=== PATIENT | female | born 1965 | race Caucasian/White ===

== ENCOUNTER → 2019-12-26 00:01 | Outpatient (BNVA) | payer MEDICAID, SELFPAY | PROVIDERS: Family Provider Physician Assistant Medical; PCP Nurse Practitioner Family; Visit Provider Nurse Practitioner Family | DX: E11.9 Type 2 diabetes mellitus without complications (principal); I10 Essential (primary) hypertension; E78.2 Mixed hyperlipidemia; E55.9 Vitamin D deficiency, unspecified | CPT/HCPCS: 80053; 80061; 82306; 83036; 84443 ==

== ENCOUNTER → 2019-12-26 12:10 | Outpatient (BNVA) | payer MEDICAID, SELFPAY | PROVIDERS: Family Provider Physician Assistant Medical; PCP Nurse Practitioner Family; Visit Provider Nurse Practitioner Family | DX: E11.9 Type 2 diabetes mellitus without complications (principal); I10 Essential (primary) hypertension; E78.2 Mixed hyperlipidemia; E55.9 Vitamin D deficiency, unspecified; Z79.4 Long term (current) use of insulin | CPT/HCPCS: 85025 ==

== ENCOUNTER → 2020-02-18 16:08 | Outpatient (BNVA) | payer MEDICAID, SELFPAY | PROVIDERS: Family Provider Physician Assistant Medical; PCP Nurse Practitioner Family; Visit Provider Nurse Practitioner Family | DX: R19.7 Diarrhea, unspecified (principal) | CPT/HCPCS: 82270 ==

== ENCOUNTER → 2020-02-20 11:31 | Outpatient (BNVA) | payer MEDICAID, SELFPAY | PROVIDERS: Family Provider Physician Assistant Medical; PCP Nurse Practitioner Family; Visit Provider Nurse Practitioner Family | DX: R11.0 Nausea (principal); R19.7 Diarrhea, unspecified | CPT/HCPCS: 87506 ==

== ENCOUNTER → 2020-04-15 09:19 | Outpatient (BNVA) | payer MEDICAID, SELFPAY | PROVIDERS: Family Provider Physician Assistant Medical; PCP Nurse Practitioner Family; Visit Provider Nurse Practitioner Family | DX: E11.9 Type 2 diabetes mellitus without complications (principal); Z79.4 Long term (current) use of insulin; R10.9 Unspecified abdominal pain; R41.3 Other amnesia; R14.0 Abdominal distension (gaseous) | CPT/HCPCS: 74018; 80053; 81003; 85025 ==

== ENCOUNTER 2020-05-07 06:00 | Outpatient (RCR) | payer MEDICAID, SELFPAY | END 2020-06-03 23:59 | disposition home or self-care (01) | LOC: WPT 06:00 | PROVIDERS: PCP Nurse Practitioner Family; Referring Provider Nurse Practitioner Family; Visit Provider Nurse Practitioner Family | DX: G89.29 Other chronic pain (principal); M54.9 Dorsalgia, unspecified; M25.551 Pain in right hip | CPT/HCPCS: 97110; 97161; 97530 ==

== ENCOUNTER → 2020-05-27 11:39 | Outpatient (BNVA) | payer MEDICAID, SELFPAY | PROVIDERS: PCP Nurse Practitioner Family; Visit Provider Nurse Practitioner Family | DX: E11.9 Type 2 diabetes mellitus without complications (principal); Z79.4 Long term (current) use of insulin | CPT/HCPCS: 80053; 81003; 83036; 85025 ==

== ENCOUNTER 2020-06-04 06:00 | Outpatient (RCR) | payer MEDICAID, SELFPAY | END 2020-07-04 23:59 | disposition home or self-care (01) | LOC: WPT 06:00 | PROVIDERS: PCP Nurse Practitioner Family; Referring Provider Nurse Practitioner Family; Visit Provider Nurse Practitioner Family | DX: M54.9 Dorsalgia, unspecified (principal); M25.551 Pain in right hip; G89.29 Other chronic pain | CPT/HCPCS: 97110; 97530 ==

== ENCOUNTER → 2020-06-10 10:45 | Outpatient (BNVA) | payer MEDICAID, SELFPAY | PROVIDERS: PCP Nurse Practitioner Family; Referring Provider Nurse Practitioner Family; Visit Provider Internal Medicine | DX: E11.40 Type 2 diabetes mellitus with diabetic neuropathy, unspecified (principal); Z79.4 Long term (current) use of insulin; E66.01 Morbid (severe) obesity due to excess calories; Z68.42 Body mass index [BMI] 45.0-49.9, adult; I10 Essential (primary) hypertension | CPT/HCPCS: 99204 ==

== ENCOUNTER → 2020-06-15 13:14 | Outpatient (BNVA) | payer MEDICAID, SELFPAY | PROVIDERS: PCP Nurse Practitioner Family; Visit Provider Nurse Practitioner Family | DX: R63.5 Abnormal weight gain (principal) | CPT/HCPCS: 82530; 82570 ==

== ENCOUNTER 2020-07-07 10:00 | Outpatient (RCR) | payer MEDICAID, SELFPAY | END 2020-07-07 13:00 | disposition home or self-care (01) | LOC: WPT 10:00 | PROVIDERS: PCP Nurse Practitioner Family; Visit Provider Nurse Practitioner Family | DX: M25.551 Pain in right hip (principal); M54.9 Dorsalgia, unspecified; G89.29 Other chronic pain | CPT/HCPCS: 97110 ==

== ENCOUNTER → 2020-08-17 11:38 | Outpatient (BNVA) | payer MEDICAID, SELFPAY | PROVIDERS: PCP Nurse Practitioner Family; Visit Provider Nurse Practitioner Family | DX: Z20.828 Contact with and (suspected) exposure to other viral communicable diseases (principal) | CPT/HCPCS: 87635 ==

== ENCOUNTER 2020-08-23 13:06 | Emergency (ER) | payer MEDICAID, SELFPAY ==
[2020-08-23 13:31] VITALS: BP 158/84; PULSE 79; RESP 22; TEMP 36.6; O2SAT 95; BMI 48.6
--- NOTE | 2020-08-23 15:08 | XRR_ITS ---
PROCEDURE INFORMATION: Exam: XR Chest, 1 View Exam date and time: 08/23/2020 3:09 PM Age: 55 years old Clinical indication: Cough and shortness of breath; Additional info: Short of breath TECHNIQUE: Imaging protocol: XR of the chest Views: 1 view. COMPARISON: CT Chest/Abdomen/Pelvis w IV* 02/19/2018 3:20 AM FINDINGS: Lungs: Unremarkable. No consolidation. Pleural space: Unremarkable. No pleural effusion. No pneumothorax. Heart/Mediastinum: Unremarkable. No cardiomegaly. Bones/joints: Unremarkable. XR/XR chest 1V portable [id number] IMPRESSION: No acute findings.
--- NOTE | 2020-08-23 15:08 | ECG_ITS ---
[facility] Test Date: 2020-08-23 Pat Name: Kendra Dockery Department: Room: Gender: Female Demographic Analyst: : 1965 Requested By: Bolivar Morrissey Order Number: [id number] Keller MD: Chantale Poole M.D. Measurements Intervals [place] Rate: 70 P: -3 CT: 186 QRS: 44 QRSD: 95 T: 46 QT: 390 QTc: 422 Interpretive Statements SINUS RHYTHM Compared to ECG 02/19/2018 01:07:26 No significant changes Electronically Signed On 08-24-2020 20:32:53 CAR DETAILER by Chantale Poole M.D. [id number]
--- NOTE | 2020-08-23 15:09 | ED_ITS ---
HPI - COVID General: Chief Complaint: COVID symptoms Stated Complaint: COUGH; COVID POS Time Seen by Provider: 08/23/20 15:07 Source: patient Mode of arrival: ambulatory Limitations: no limitations Triage information: Has fever, cough or shortness of breath . Exposure to COVID + person last 14 days History of Present Illness: HPI Narrative: Patient has been ill for approximately 8 days. Patient tested positive for COVID-19 on day 6 days ago. Patient comes in due to concerns of increased shortness of breath. Patient appears mildly unwell. Patient appears no acute distress. COVID 19 common symptoms: positive dyspnea COVID Results: SARS-CoV-2 RNA (RT-PCR) Detected (NOT DETECTED) A 08/17/20 11:38 08/17/20 Review of Systems General: Reports: 10 or more systems reviewed and unremarkable except in HPI and below Resp: Reports: dyspnea PFS ED PFSH: Medical History (Updated 08/17/20 @ 10:39 by SANJU Trinidad) Abdominal pain Acute bacterial sinusitis Arthritis Chronic back pain greater than 3 months duration Chronic right hip pain Environmental and seasonal allergies Hypertension Hypokalemia Increased endometrial stripe thickness Lower respiratory infection Mixed hyperlipidemia Neuropathy Short-term memory loss Type 2 diabetes mellitus Surgical History Status post delivery 2 c-sections Children are 29 yrs and 30yrs Status post ear surgery Family History Mother CAD (coronary artery disease) Father CAD (coronary artery disease) Social History Smoking and tobacco status: never smoked Alcohol intake: never Physical Exam Const: COMMON NORMALS: no acute distress and patient oriented x3 GENERAL APPEARANCE: cooperative HENMT: COMMON NORMALS: normocephalic and Normal external nose present HEAD & SCALP: normal to inspection and normocephalic NOSE: Normal external nose present MOUTH: Normal oral and palatal mucosa present Eye: GENERAL EYE: appearance normal, both eyes and all related structures Neck/C-Spine: COMMON NORMALS: full ROM Lymph: LYMPHATIC: no lymphadenopathy noted Chest: COMMONS NORMALS: normal inspection of the chest Resp: COMMON NORMALS: normal respiratory effort EFFORT & INSPECTION: Yes able to speak in complete sentences AUSCULTATION: diminished lung sounds Cardio: COMMON NORMALS: regular rate and regular rhythm RATE: regular rate RHYTHM: regular rhythm GI: COMMON NORMALS: non-tender : COMMON NORMALS: Yes no CVA tenderness BLADDER/KIDNEY EXAM: Yes no CVA tenderness Back/Pelvis: COMMON NORMALS: no CVA tenderness and thoracic and lumbar spine normal to inspection Extremity: COMMON NORMALS: normal to inspection Neuro: COMMON NORMALS: patient oriented x3 and moves all extremities Psych: COMMON NORMALS: mental status grossly normal and cooperative Skin: COMMON NORMALS: no rashes or lesions noted GENERAL SKIN EXAM: no michelle hes or lesions noted Course Vital Signs: Vital signs: Vital Signs Temperature 97.8 F 08/23/20 13:31 Pulse Rate 79 08/23/20 13:31 Respiratory Rate 22 H 08/23/20 13:31 Blood Pressure 158/84 08/23/20 13:31 Pulse Oximetry 95 08/23/20 13:31 MDM - COVID MDM Narrative: Medical decision making narrative: Patient presents with feeling of malaise, cough and congestion. Patient had been being treated for COVID-19 at her primary care office. Patient came into the ER for persistent cough and congestion after completing her antibiotic. On exam patient appears mildly unwell. Lungs were decreased in the bases. Vital signs were stable. Oxygenation was 97% on room air. Differential diagnosis include pneumonia, sequela to COVID-19, acute bronchitis, CHF. Chest x-ray noted no significant infiltrates or pneumonia. I reviewed the use of BAM with patient who agreed to plan for infusion. Patient was also treated with dexamethasone for congestion in her chest and continued difficulty with breathing. Patient reported understanding of care plan which includes continuation of nebulizer and inhalers as prescribed. EKG Data: EKG 1: Attestation: I personally reviewed and interpreted this EKG as follows: (1614, normal sinus rhythm on the EKG at 78 bpm. Rate is regular. No ST elevation or ectopy is noted. No prior exam is available at this time.) COVID Results: SARS-CoV-2 RNA (RT-PCR) Detected (NOT DETECTED) A 08/17/20 11:38 08/17/20 Discharge Plan Discharge Prescriptions: No Action doxycycline monohydrate 100 mg capsule 100 mg PO BID 10 Days Qty: 20 RF: 0 insulin aspart U-100 [Novolog Flexpen U-100 Insulin] 100 unit/mL (3 mL) insulin pen 12 unit SUBCUT BID RF: 0 hydrochlorothiazide 25 mg tablet 25 mg PO DAILY RF: 0 levofloxacin 500 mg tablet 500 mg PO DAILY 5 Days Qty: 5 RF: 0 guaifenesin [Mucinex] 600 mg tablet extended release 12hr 600 mg PO BID PRN (Reason: cough) 30 Days Qty: 60 RF: 0 acetaminophen [Pain Reliever (acetaminophen)] 325 mg tablet See Rx Instructions .ROUTE .COMPLEX Qty: 60 RF: 0 atorvastatin 80 mg tablet 80 mg PO DAILY 90 Days Qty: 90 RF: 1 baclofen 10 mg tablet 10 mg PO .AT BEDTIME PRN (Reason: pain) Qty: 30 RF: 2 cholecalciferol (vitamin D3) 1,250 mcg (50,000 unit) capsule 50,000 unit PO .weekly 90 Days Qty: 12 RF: 1 Jardiance 25 mg tablet 25 mg PO DAILY 90 Days Qty: 90 RF: 1 furosemide [Lasix] 20 mg tablet 20 mg PO BID 90 Days Qty: 180 RF: 1 gabapentin 300 mg capsule 600 mg PO BID Qty: 120 RF: 2 ibuprofen 800 mg tablet See Rx Instructions .ROUTE .COMPLEX Qty: 60 RF: 0 losartan 25 mg tablet 25 mg PO DAILY 90 Days Qty: 90 RF: 1 montelukast [Singulair] 10 mg tablet 10 mg PO DAILY 90 Days Qty: 90 RF: 1 Daily Multiple For Women 18 mg iron-400 mcg-500 mg Ca tablet 1 tab PO DAILY 90 Days Qty: 90 RF: 1 Januvia 100 mg tablet 100 mg PO DAILY 90 Days Qty: 90 RF: 1 fluticasone propionate 50 mcg/actuation spray,suspension 2 spray INTRANASAL DAILY Qty: 15.8 RF: 0 insulin detemir U-100 [Levemir FlexTouch U-100 Insuln] 100 unit/mL (3 mL) insulin pen See Rx Instructions .ROUTE .COMPLEX Qty: 15 RF: 2 albuterol sulfate [ProAir HFA] 90 mcg/actuation HFA aerosol inhaler See Rx Instructions .ROUTE .COMPLEX Qty: 8.5 RF: 2 potassium chloride 10 mEq capsule, extended release 10 meq PO DAILY Qty: 30 RF: 2 pen needle, diabetic [Pentips] 32 gauge x 5/32 needle See Rx Instructions .ROUTE .COMPLEX Qty: 100 RF: 5 Coding Level of Care Code ED Office Nurse Practitioner for Chg Fwd Exam Comprehensive
[2020-08-23] MEDS: dexamethasone 4 mg/mL INJ 6 MG IVP (16:45)
[2020-08-23 17:06] VITALS: O2SAT 96
[2020-08-23 17:21] VITALS: BP 121/74; PULSE 72; RESP 18; O2SAT 96
[2020-08-23 17:41] VITALS: TEMP 36.8
[2020-08-23 17:55] LABS: Basophils % 0.3 %; Eosinophils # 0.3 10^3/uL (0.0-0.8); Eosinophils % 3.1 %; Hematocrit 38.4 % (37.0-47.0); Hemoglobin 11.9 g/dL (11.5-15.3); Lymphocytes # 1.7 10^3/uL (0.8-4.8); Lymphocytes % 18.6 %; Mean Corpuscular Hemoglobin 27.5 pg (28.0-34.0); Mean Corpuscular Volume 88.9 fL (81-99); Mean Platelet Volume 11.5 fL (7.4-10.4); Monocytes # 0.6 10^3/uL (0.2-0.9); Monocytes % 6.6 %; Neutrophils # 6.24 10^3/uL (1.8-7.7); Neutrophils % 70.2 %; Nucleated Red Blood Cells % 0 %; Platelet Count 274 10^3/cmm (130-400); Red Blood Count 4.32 10^6/uL (4.1-5.3); White Blood Count 8.9 10^3/uL (4.0-10.0)
[2020-08-23 18:10] LABS: Alanine Aminotransferase 18 U/L (0-33); Albumin Level 3.6 g/dL (3.5-5.2); Alkaline Phosphatase 99 IU/L (35-105); Anion Gap 17.7 (5-19); Aspartate Amino Transferase 17 U/L (0-32); Blood Urea Nitrogen 18 mg/dL (6-20); Calcium 9.1 mg/dL (8.5-10.5); Carbon Dioxide 26 mmol/L (22-29); Chloride 98 mmol/L (98-107); Globulin 3.8 g/dL (1.3-4.6); Glucose 109 mg/dL (65-115); Osmolality Calculated 288 mOsm/kg (285-295); Potassium 3.7 mmol/L (3.5-5.1); Sodium 138 mmol/L (136-145); Total Bilirubin 0.4 mg/dL (0.15-1.2); Total Protein 7.4 g/dL (6.6-8.7)
[2020-08-23 18:56] VITALS: PULSE 73; RESP 18; O2SAT 96
--- NOTE | 2020-08-25 11:19 | DCPLANNER ---
Addendum entered by Grace May 09/01/20 15:20: harbor department manager called patient on day 10 after receiving the BAM infusion. Patient stated that she is feeling much better, has not had a follow up appointment yet, but will call her primary care to schedule one. Patient has not been admitted anywhere. Original Note: late entry - case worker had message that patient received the BAM infusion. harbor department manager called to check on patient after receiving the infusion. harbor department manager called [phone] phone just rang, and then disconnected, called [phone] and it was a busy signal, called [phone] voicemail box not set up and case worker called [phone] and voicemail box not set up with this number either. harbor department manager unable to speak with patient or leave a voicemail with any number on patients chart.
== END 2020-08-23 19:01 | disposition home or self-care (01) ==
PROVIDERS: Emergency Provider Nurse Practitioner Family; PCP Nurse Practitioner Family
DX: U07.1 COVID-19 (principal); Z79.4 Long term (current) use of insulin; I10 Essential (primary) hypertension; E78.2 Mixed hyperlipidemia; E11.40 Type 2 diabetes mellitus with diabetic neuropathy, unspecified
CPT/HCPCS: 12345; 71045; 80053; 85025; 93005; 96365; 96375; 99283; J1100; J7050

== ENCOUNTER → 2020-09-16 09:11 | Outpatient (BNVA) | payer MEDICAID, SELFPAY | PROVIDERS: PCP Nurse Practitioner Family; Visit Provider Internal Medicine | DX: E11.40 Type 2 diabetes mellitus with diabetic neuropathy, unspecified (principal); Z79.4 Long term (current) use of insulin; E66.01 Morbid (severe) obesity due to excess calories; Z68.42 Body mass index [BMI] 45.0-49.9, adult; I10 Essential (primary) hypertension; R63.5 Abnormal weight gain | CPT/HCPCS: 99214 ==

== ENCOUNTER 2020-11-10 07:14 | Day surgery (SDC) | payer MEDICAID, SELFPAY ==
[2020-11-06 12:52] VITALS: BMI 48.8
--- NOTE | 2020-11-06 13:13 | P.ANESASSM_ITS ---
Pre-Anesthetic Assessment Pre-Anesthetic Assessment: Height/Weight: Height 1.61 m Weight 127.006 kg Preop Diagnosis: Thickened endometrial stripe on ultrasound Proposed Procedure: Operation Date: 11/10/20 09:15 Proposed Procedures p Hysteroscopy [id number] R93.89 N88.2(Not Applicable) - MD judy Mclean Dilation And Curettage (D&C) with paracervical block(Not Applicable) - Johnny Freire MD Familial anesthetic complications: (quit breathing) Social: Social History: No alcohol and No tobacco Exam: Pre-Anes Outpt Exam: alert, oriented x 3, clear to auscultation bilaterally and regular rate & rhythm Airway: Cervical ROM: WNL MP: 4 Dentition: Chipped Additional comments: larege tongue, large neck, overbite - potential dificult airway Pulmonary: Pulmonary: COPD (bronchitis) and Sleep apnea Comments: covid in august CV/HEM: CV/HEM: HTN GI: GI: GERD (occassional) Metabolic: Metabolic: DM, Morbid obesity and Thyroid Musc/skel: Musc/skel: Lower Back Pain and OA/DJD Anesthetic Plan: ASA status: 3 Anesthesia: General Risk of > 500 ml blood loss (7ml/kg in children): No PFSH Anesthesia PFSH: Medical History (Updated 09/25/20 @ 17:08 by Johnny Freire MD) Abdominal pain Arthritis Chronic back pain greater than 3 months duration Chronic right hip pain Diabetic neuropathy Environmental and seasonal allergies Hypertension Hypokalemia Mixed hyperlipidemia Short-term memory loss Type 2 diabetes mellitus Surgical History (Updated 09/25/20 @ 17:08 by Johnny Freire MD) H/O section (~1989) With tubal ligation. Performed in [place], [place] History of carpal tunnel surgery of left wrist S/P tubal ligation (~1989) Performed at time of section in [place], [place] Status post delivery (~1988) Performed in [place]. Status post ear surgery (~1999) Right mastoid surgery Family History Mother CAD (coronary artery disease) Stroke Diabetes Father CAD (coronary artery disease) Stroke Diabetes Sister Hypertension Grandmother Diabetes Paternal Social History (Updated 09/25/20 @ 17:11 by Johnny Freire MD) Smoking and tobacco status: former smoker Alcohol intake: never Data Anesthesia Cardiac Studies: No Data to Display
[2020-11-06 14:02] LABS: Anion Gap 13.6 (5-19); Blood Urea Nitrogen 17 mg/dL (6-20); Calcium 9.8 mg/dL (8.5-10.5); Carbon Dioxide 28 mmol/L (22-29); Chloride 100 mmol/L (98-107); Glomerular Filtration Rate 74.5 mL/min (90-130); Glucose 151 mg/dL (65-115); Osmolality Calculated 290 mOsm/kg (285-295); Potassium 3.6 mmol/L (3.5-5.1); Sodium 138 mmol/L (136-145)
[2020-11-10 07:31] VITALS: BP 176/96; PULSE 75; RESP 18; TEMP 36.7; O2SAT 97
[2020-11-10 07:44] LABS: Glucose Point of Care 198 mg/dL (70-110)
[2020-11-10] MEDS: sodium chloride 0.9% 1,000 ML 30 ML IV (07:47)
--- NOTE | 2020-11-10 07:50 | W.PM.OPSUD ---
Surgery/Procedure H&P Update DATE OF PROCEDURE: November 10, 2020 DATE H&P PERFORMED: 11/06/20 H&P UPDATE INFORMATION: I have reviewed H&P completed within last 30 days, I have examined patient prior to procedure, No changes to prior documentation and H&P is in [facility] EMR on date indicated PREOP DIAGNOSIS: Thickened endometrial stripe on ultrasound PLANNED PROCEDURE: Operation Date: 11/10/20 09:15 Proposed Procedures p Hysteroscopy [id number] R93.89 N88.2(Not Applicable) - Johnny Freire MD s Dilation And Curettage (D&C) with paracervical block(Not Applicable) - Johnny Freire MD Related Problem List Diagnoses (1) Endometrial thickening on ultrasound: (2) Cervical stenosis (uterine cervix):
[2020-11-10 08:47] VITALS: BP 133/80; PULSE 97; RESP 18; TEMP 36.2; O2SAT 95
--- NOTE | 2020-11-10 08:47 | P.OP_ITS ---
Operative Report Date of procedure: November 10, 2020 Pre-op Diagnosis: Thickened endometrial stripe on ultrasound, Cervical stenosis Post-op Diagnosis: Endometrial polyps, Cervical stenosis Procedure Done: Hysteroscopy with polypectomy with MyoSure, Paracervical block Specimens removed/disposition: Endometrial polyps with endometrial lining sampling Surgeon: Johnny Freire Picture Copyist: None Anesthesia: MAC and Other (Paracervical block with 2% lidocaine with epinephrine) Estimated blood loss (mL): 25 IV fluids (mL): 500 Complications: None Findings: Minimal uterine prolapse. Stenotic cervix. Multiple uterine polyps noted on hysteroscopy. Brief History: Patient is a 55-year-old female, 2, Para 2-0-0-2 who is postmenopausal. She presented to the office as a referral from Shana Santana due to abnormal ultrasound imaging. She was originally seen in June [address] Vernon due to a thickened endometrial lining on ultrasound. She was scheduled for further evaluation at the time but did not return to the office. She presented to me on 09/23/2020 again due to a thickened lining. Endometrial stripe measured 2.7 cm on prior ultrasound from 02/2018. On my exam cervical stenosis with covering over the cervical os was noted. As a result, she was scheduled for hysteroscopy with D&C in the OR. She is presenting for that at this time Procedure: The patient was taken to the operating room where IV sedation was started. She was prepped and draped in the usual sterile fashion in the dorsal supine position with legs in Amadou style stirrups. Sequential compression boots had been placed prior to starting the case. Patient had voided just before coming to the operating room. Exam under anesthesia was performed and the patient was noted to have minimal uterine prolapse. A weighted speculum was placed in the vagina and the cervix was grasped with a single-tooth tenaculum. A paracervical block was performed with a total of 12 mL of 2% lidocaine with epinephrine used. Covering was noted over the cervical os. Using cervical dilators, the covering was able to be pierced and the cervix serially dilated until a hysteroscope could be passed. Crystalloid solution was used as a distention media. The endometrial cavity was inspected. She was noted to have multiple polyps throughout the endometrial cavity. Using the MyoSure device, the polyps were removed until normal endometrial cavity was seen. No evidence of cancer was identified. The tenaculum was removed and there was minimal bleeding from the tenaculum site. Patient tolerated the procedure well. Sponge and needle counts were correct. DRAINS: None POSTOPERATIVE STATUS: The patient was transferred to the recovery room in satisfactory condition DISPOSITION: Discharge to home when criteria was met. FOLLOWUP APPOINTMENT: Followup appointment had been scheduled on 11/23/2020 in my office. MEDICATIONS: Tramadol 50 mg, 1 to 2 tablets every 6 hours as needed for pain, #10, 0 refills May use [id number] ibuprofen as needed. May resume usual home medications.
[2020-11-10 08:50] VITALS: BP 144/56; PULSE 95; RESP 18; O2SAT 99
[2020-11-10 08:55] VITALS: BP 144/56; PULSE 93; RESP 18; TEMP 36.2; O2SAT 97
[2020-11-10] MEDS: ibuprofen 800 mg tablet PO (09:50)
--- NOTE | 2020-11-10 10:19 | ANE.PACU2 ---
Inpatient post-anesthesia follow up: Airway intact: Yes Vital signs: Temperature 97.2 F Pulse Rate 93 Respiratory Rate 18 Blood Pressure 144/56 Pulse Oximetry 97 Oxygen Delivery Me thod Room Air Oxygen Flow Rate 8 Fraction of Inspir ed Oxygen Hydration adequate: Yes Nausea and vomiting: No Pain level: 2 Mental status: Baseline
== END 2020-11-10 10:18 | disposition home or self-care (01) ==
PROVIDERS: PCP Nurse Practitioner Family; Visit Provider Obstetrics & Gynecology
PROC: (CPT 58120; 2020-11-10 09:05)
PROC: 0UDB8ZZ Extraction of Endometrium, Via Natural or Artificial Opening Endoscopic (ICD-10-PCS; CPT 58558; 2020-11-10 09:05)
DX: R93.89 Abnormal findings on diagnostic imaging of other specified body structures (principal); N88.2 Stricture and stenosis of cervix uteri; J44.9 Chronic obstructive pulmonary disease, unspecified; I10 Essential (primary) hypertension; K21.9 Gastro-esophageal reflux disease without esophagitis; E11.9 Type 2 diabetes mellitus without complications; E66.01 Morbid (severe) obesity due to excess calories; Z68.42 Body mass index [BMI] 45.0-49.9, adult; M19.90 Unspecified osteoarthritis, unspecified site; E78.2 Mixed hyperlipidemia; Z87.891 Personal history of nicotine dependence
CPT/HCPCS: 58558; 36415; 36416; 80048; 82962; 88305; J2250; J2704; J3010; J7030

== ENCOUNTER → 2020-11-20 10:08 | Outpatient (BNVA) | payer MEDICAID, SELFPAY | PROVIDERS: PCP Nurse Practitioner Family; Visit Provider Nurse Practitioner Family | DX: E11.9 Type 2 diabetes mellitus without complications (principal); Z79.4 Long term (current) use of insulin; E78.2 Mixed hyperlipidemia; I10 Essential (primary) hypertension; D64.9 Anemia, unspecified; E55.9 Vitamin D deficiency, unspecified; E66.01 Morbid (severe) obesity due to excess calories; Z68.42 Body mass index [BMI] 45.0-49.9, adult | CPT/HCPCS: 80053; 80061; 81003; 82306; 82607; 82746; 83036; 83550; 84439; 84443; 84481; 85025 ==

== ENCOUNTER → 2020-12-08 10:14 | Outpatient (BNVA) | payer MEDICAID, SELFPAY | PROVIDERS: PCP Nurse Practitioner Family; Visit Provider Internal Medicine | DX: E11.40 Type 2 diabetes mellitus with diabetic neuropathy, unspecified (principal); Z79.4 Long term (current) use of insulin; E66.01 Morbid (severe) obesity due to excess calories; Z68.42 Body mass index [BMI] 45.0-49.9, adult; I10 Essential (primary) hypertension; R63.5 Abnormal weight gain | CPT/HCPCS: 99214 ==

== ENCOUNTER 2020-12-30 09:26 | Outpatient (CLI) | payer MEDICAID, SELFPAY | END 2020-12-30 09:27 | disposition home or self-care (01) | LOC: WOUND 09:27 | PROVIDERS: PCP Nurse Practitioner Family; Visit Provider Thoracic Surgery (Cardiothoracic Vascular Surgery) | DX: L97.512 Non-pressure chronic ulcer of other part of right foot with fat layer exposed (principal) | CPT/HCPCS: 11042; G0463 ==

== ENCOUNTER 2021-01-12 09:31 | Outpatient (CLI) | payer MEDICAID, SELFPAY | END 2021-01-12 09:32 | disposition home or self-care (01) | LOC: WOUND 09:32 | PROVIDERS: PCP Nurse Practitioner Family; Visit Provider Thoracic Surgery (Cardiothoracic Vascular Surgery) | DX: Z09 Encounter for follow-up examination after completed treatment for conditions other than malignant neoplasm (principal) | CPT/HCPCS: 99212 ==

== ENCOUNTER → 2021-01-14 14:20 | Outpatient (BNVA) | payer MEDICAID, SELFPAY | PROVIDERS: PCP Nurse Practitioner Family; Visit Provider Nurse Practitioner Family | DX: M25.561 Pain in right knee (principal); M25.562 Pain in left knee; G89.29 Other chronic pain; R51.9 Headache, unspecified; M17.11 Unilateral primary osteoarthritis, right knee | CPT/HCPCS: 73562 ==

== ENCOUNTER → 2021-04-01 11:29 | Outpatient (BNVA) | payer MEDICAID, SELFPAY | PROVIDERS: PCP Nurse Practitioner Family; Visit Provider Nurse Practitioner Family | DX: N89.8 Other specified noninflammatory disorders of vagina (principal) | CPT/HCPCS: 87070; 87106; 87205 ==

== ENCOUNTER → 2021-04-08 11:06 | Outpatient (BNVA) | payer MEDICAID, SELFPAY | PROVIDERS: PCP Nurse Practitioner Family; Visit Provider Specialist | DX: M17.0 Bilateral primary osteoarthritis of knee (principal) | CPT/HCPCS: 73560; 73565 ==

== ENCOUNTER 2021-04-27 13:12 | Outpatient (CLI) | payer MEDICAID, SELFPAY ==
--- NOTE | 2021-04-27 13:26 | MR_ITS ---
WS: [id number] MRI LEFT KNEE HISTORY: M17.0 - Bilateral primary osteoarthritis of knee COMPARISON: Radiographs 04/08/2021 Anterior cruciate ligament: Increased signal and thinning of the ACL. No full-thickness defect or tea r. Focal narrowing involving the central portion of the ACL. Posterior cruciate ligament: Intact. Medial collateral ligament: Intact. Small amount of fluid between the MCL and the osseous structures. Posterior lateral corner structures: Intact. Medial menisci: Increased signal extending to the meniscal root. The remaining menisci is negative. Lateral meniscus: Intact. Normal signal, size and shape. Extensor mechanism: Distal quadriceps tendon and patellar tendons are intact. Fluid and soft tissue: Large suprapatellar joint effusion. Very small amount of fluid in Castanon's cyst . Mild soft tissue edema surrounding the anterior knee. Osseous and articular structures: Patellofemoral compartment: Mild chondromalacia of the patellar cartilage. Near complete cartilage de fect at the patellar eminence. There is a very tiny subchondral cyst at the patellar eminence. No mar row edema otherwise or fracture. Medial compartment: Moderate narrowing medial compartment. Near complete loss of cartilage along the weightbearing surface. There is additional marrow edema in the medial tibial plateau adjacent to the MCL. There is increase fluid between the MCL and the medial tibial plateau. No fracture. Lateral compartment: Mild narrowing of the lateral compartment with thinning and fissuring of the car tilage. No marrow edema or fracture. MR/MR knee LT wo con* [id number] IMPRESSION: 1. Large suprapatellar joint effusion. 2. Moderate narrowing of the medial compartment with near complete loss of car tilage and edema in the medial tibial plateau. No fracture. 3. Mild chondromalacia of the patella. 4. Partial tear of the mid ACL. 5. Focal complex tear meniscal root of the posterior medial meniscus.
== END 2021-04-27 13:13 | disposition home or self-care (01) ==
PROVIDERS: PCP Nurse Practitioner Family; Visit Provider Specialist
DX: M25.562 Pain in left knee (principal); M25.462 Effusion, left knee; M22.42 Chondromalacia patellae, left knee; S83.512A Sprain of anterior cruciate ligament of left knee, initial encounter; S83.232A Complex tear of medial meniscus, current injury, left knee, initial encounter; X58.XXXA Exposure to other specified factors, initial encounter
CPT/HCPCS: 73721

== ENCOUNTER 2021-05-17 16:39 | Outpatient (CLI) | payer MEDICAID, SELFPAY | END 2021-05-17 16:40 | disposition home or self-care (01) | LOC: SPT 16:40 | PROVIDERS: PCP Nurse Practitioner Family; Visit Provider Specialist | DX: Z46.89 Encounter for fitting and adjustment of other specified devices (principal); S89.92XD Unspecified injury of left lower leg, subsequent encounter; X58.XXXD Exposure to other specified factors, subsequent encounter | CPT/HCPCS: 80500; 89051; 97760; L1812 ==

== ENCOUNTER → 2021-07-23 11:28 | Outpatient (BNVA) | payer MEDICAID, SELFPAY | PROVIDERS: PCP Nurse Practitioner Family; Visit Provider Internal Medicine | DX: E11.40 Type 2 diabetes mellitus with diabetic neuropathy, unspecified (principal); E66.01 Morbid (severe) obesity due to excess calories; Z68.42 Body mass index [BMI] 45.0-49.9, adult; Z79.4 Long term (current) use of insulin | CPT/HCPCS: 99214 ==

== ENCOUNTER → 2021-08-09 11:27 | Outpatient (BNVA) | payer MEDICAID, SELFPAY | PROVIDERS: PCP Nurse Practitioner Family; Visit Provider Nurse Practitioner Family | DX: I10 Essential (primary) hypertension (principal); E78.5 Hyperlipidemia, unspecified; E11.9 Type 2 diabetes mellitus without complications; Z79.4 Long term (current) use of insulin; E55.9 Vitamin D deficiency, unspecified; E78.2 Mixed hyperlipidemia | CPT/HCPCS: 80053; 80061; 82043; 82306; 83036 ==

== ENCOUNTER → 2022-01-03 09:33 | Outpatient (BNVA) | payer MEDICAID, SELFPAY | PROVIDERS: PCP Nurse Practitioner Family; Visit Provider Nurse Practitioner Family | DX: E11.9 Type 2 diabetes mellitus without complications (principal); Z79.4 Long term (current) use of insulin | CPT/HCPCS: 80053; 80061; 82043; 83036 ==

== ENCOUNTER → 2022-01-12 13:09 | Outpatient (BNVA) | payer MEDICAID, SELFPAY | PROVIDERS: PCP Nurse Practitioner Family; Visit Provider Internal Medicine | DX: E11.40 Type 2 diabetes mellitus with diabetic neuropathy, unspecified (principal); E78.2 Mixed hyperlipidemia; E66.01 Morbid (severe) obesity due to excess calories; Z68.42 Body mass index [BMI] 45.0-49.9, adult; Z79.4 Long term (current) use of insulin | CPT/HCPCS: 99214 ==